=== PATIENT | male | born 1985 ===

== ENCOUNTER 2024-11-06 06:37 | Day surgery (SDC) | payer BC, SELFPAY ==
[2024-11-06] VITALS (9 sets, daily range): BP systolic 98–133; BP diastolic 55–88; BMI 29.8
[2024-11-06] MEDS: NORMOSOL-R/PLASMALYTE-A 1000 IV (07:57)
[2024-11-06] MEDS: TYLENOL 1000 MG PO (07:57)
== END 2024-11-06 12:47 | disposition home or self-care (01) ==
LOC: SDS 06:37
PROVIDERS: ATTENDING PHYSICIAN Otolaryngology
DX: J34.2 Deviated nasal septum (principal); J34.3 Hypertrophy of nasal turbinates
CPT/HCPCS: 30140; 30520